=== PATIENT | male | born 1970 ===

== ENCOUNTER 2016-10-27 09:32 | Emergency (ER) | payer OTHER ==
[2016-10-27] MEDS ORDERED: oxyCODONE 5 MG TABLET PO STA ×2 (11:52→13:20)
[2016-10-27] MEDS ORDERED: ONDANSETRON ODT 4 MG TABLET TL STA (11:52)
--- NOTE | 2016-10-27 12:02 | ED Physician Documentation ---
History of Present Illness - Stated complaint Stated Complaint: HEADACHE - Chief complaint Chief Complaint: General - Additonal information Additional information: hx from pt healthy 46 [place] male int severe sharp L occiptal region SMART for 11 days no fever no neck stiffness no vision change no numbness or weakness nasuea no vomit no trauma or whiplash recalled saw PMD at [facility] an MRI was ordered and is scheduled for tomorrow pain now acutely more severe and constant now no contacts with same denies CO in the house Review of Systems Constitutional: denies: Fever, Chills Eyes: denies: Decreased vision Throat: denies: Sore throat Cardiac: denies: Chest pain / pressure GI: reports: Nausea. denies: Abdominal Pain, Vomiting Musculoskeletal: reports: Neck pain Neurologic: reports: Headache. denies: Generalized weakness, Focal weakness, Numbness, Head injury Endocrine: denies: Easy bruising / bleeding Immunocompromised: denies: Immunocompromised PD PAST MEDICAL HISTORY - Past Medical History Past Medical History: Yes Cardiovascular: Hypertension Respiratory: None Endocrine/Autoimmune: None GI: None : None Psych: None Musculoskeletal: None Derm: None - Past Surgical History Past Surgical History: No - Present Medications Home Medications: Ambulatory Orders Medication Instructions Recorded Confirmed Acetaminophen 500 mg PO Q4HR 10/27/16 10/27/16 Butalbital/Aspirin/Caffeine 1 each PO Q6H PRN #10 capsule 10/27/16 [Fiorinal 50-325-40 mg Capsule] Lisinopril 20 mg PO DAILY 10/27/16 10/27/16 Testosterone [Fortesta] 2 units TD DAILY 10/27/16 10/27/16 - Allergies Allergies/Adverse Reactions: Allergies Allergy/AdvReac Type Severity Reaction Status Date / Time No Known Drug Allergies Allergy Verified 10/27/16 09:48 - Social History Does the pt smoke?: No Smoking Status: Never smoker Does the pt drink ETOH?: Yes Does the pt have substance abuse?: No - Immunizations Immunizations are current?: Yes PD ED PE NORMAL - Vitals Vital signs reviewed: Yes - General General: Alert and oriented X 3 - HEENT HEENT: PERRL, EOMI - Neck Neck: Supple, no meningeal sign, No bony TTP, Other (no shingles rash) - Cardiac Cardiac: RRR - Respiratory Respiratory: No respiratory distress, Clear bilaterally - Abdomen Abdomen: Soft, Non tender - Derm Derm: Normal color - Neuro Neuro: Alert and oriented X 3, administrative resources associate 2-12 intact, No motor deficit, No sensory deficit, Normal speech - Psych Psych: Normal mood Results - Vitals Vitals: Vital Signs - 24 hr 10/27/16 10/27/16 10/27/16 09:45 13:15 16:54 Temperature 36.6 C 36.8 C 36.2 C L Heart Rate 67 60 63 Respiratory 16 18 18 Rate Blood Pressure 168/96 H 163/106 H 158/93 H O2 Saturation 99 97 95 10/27/16 18:49 Temperature 36.2 C L Heart Rate 65 Respiratory 20 Rate Blood Pressure 191/117 H O2 Saturation 97 Oxygen O2 Source Room air - Rads (name of study) MRI brain Radiology: See rad report (no acute) MRA brain Radiology: See rad report MRA neck Radiology: See rad report (no acute) PD MEDICAL DECISION MAKING - ED course ED course: subacute severe occipital SMART no feve ror neck stiffness makes meningitis extremely unlikely denies CO exposure considered vertebral dissection - MRA neck neg considered aneurysm SAH but MRA brain shows nl vasculature and no visible bleed which makes SAH extremely unlikely and do not feel LP is needed and MRI brain showed no tumor etc etiology still unclear but reassuring wup so will dc to [facility] tomorrow pt BP running high whole ED stay but he has a hx of HTN - apprently did not take his BP meds today and states to nurse those readings are normal for him- his DC BP was much higher - suggested pt stay to get meds for same but he just wants to go home and take his own meds and see his PMD Departure - Departure Disposition: 01 Home, Self Care Clinical Impression: Headache Condition: Good Instructions: ED Cephalgia Unspecified Follow-Up: [facility] Oroscokarina Gao [Provider Group] Prescriptions: Butalbital/Aspirin/Caffeine [Fiorinal 50-325-40 mg Capsule] 1 each PO Q6H PRN # 10 capsule PRN Reason: Headache Comments: Your history and exam do not suggest meningitis. The MRA of you neck did not show an aneurysm or tear of the blood vessels The MRA of your brain did not show an aneurysm or bleeding in the brain The MRI of your brain does not show any tumors And you are certain there is no carbon monoxide in your house The cause of the headache is still unclear, but given the reassuring work up I think it is safe for your to go home tonight and follow up with your doctors at [facility] tomorrow. For pain I suggest trying a medication called fioricet which I have written a prescription for - please pick it up on your way home No flying or operating machinery until you have followed up with medical at [facility] for a recheck and perhaps further evaluation and have been cleared Please get your blood pressure rechecked when you are feeling better as well - it was high today Forms: Activity restrictions Discharge Date/Time: 10/27/16 18:49
[2016-10-27] MEDS ORDERED: oxyCODONE 5 MG TABLET ONE ×2 (12:14→13:41)
[2016-10-27] MEDS ORDERED: ONDANSETRON ODT 4 MG TABLET ONE (12:14)
[2016-10-27] MEDS ORDERED: GADOBUTROL 10 MMOL/10 ML VIAL ONE (14:35)
[2016-10-27] MEDS ORDERED: GADOBUTROL 10 MMOL/10 ML VIAL IVP ONE (16:20)
--- NOTE | 2016-10-27 16:26 | MRI Preliminary Report ---
Exam: MRI Brain W/O IMPRESSION: 1. No MRI evidence for acute intracranial abnormality. 2. Minimal nonspecific white matter T2 hyperintense signal changes, probably chronic. 3. Minimal nonspecific paranasal sinus mucosal thickening. [facility] SITE ID: [id number]
--- NOTE | 2016-10-27 16:28 | MRI Report ---
EXAM: MRI BRAIN WITHOUT CONTRAST EXAM DATE: 10/27/2016 04:09 PM. CLINICAL HISTORY: Severe occipital headache. COMPARISON: None. TECHNIQUE: Multiplanar, multisequence T1-weighted and fluid-sensitive MR sequences of the brain were performed. Sequences optimized for routine evaluation. Other: None. IV Contrast: None. FINDINGS: Brain Volume: Normal for age. Parenchyma/Dura: No masses, infarcts, or hemorrhage. There are a few tiny scattered foci of nonspecif ic white matter T2 hyperintensity. The usual gamut of White matter conditions may be considered inclu ding minimal small vessel ischemic disease which could include migraine angiopathy. No discrete plaqu e-like periventricular T2 hyperintense lesions. No mass effect, midline shift or abnormal subdural fluid collection. No evidence for Chiari malformat ion. Ventricles/Cisterns: No hydrocephalus. Sinuses: The nasal septum is deviated to the left. Minimal multifocal paranasal sinus mucosal thicken ing is present without air-fluid level or opacification. Clear mastoids. Bones: No focal pathologic appearing marrow signal changes in the skull or clivus. Other: The major arterial skull base flow voids are present. IMPRESSION: 1. No MRI evidence for acute intracranial abnormality. 2. Minimal nonspecific white matter T2 hyperintense signal changes, probably chronic. 3. Minimal nonspecific paranasal sinus mucosal thickening. [facility] Referring Provider Line: [phone] SITE ID: [id number]
--- NOTE | 2016-10-27 16:59 | MRI Preliminary Report ---
Exam: MRI Angio Brain W/O (MRA) IMPRESSION: 1. No hemodynamically significant stenosis, dissection, occlusion, aneurysm, vascular malformation wi thin the intracranial arteries. 2. The left posterior communicating artery is not visualized, likely hypoplastic or aplastic. [facility] SITE ID: [id number]
--- NOTE | 2016-10-27 17:01 | MRI Report ---
EXAM MRA BRAIN EXAM DATE: 10/27/2016 04:30 PM. CLINICAL HISTORY: Int severe occipital pain, now constant sharp severe. COMPARISON: MRI brain obtained concurrently. TECHNIQUE: Multiplanar, multisequence MRA sequences of the brain were performed. Other: None. Post-pr ocessing: Multiplanar 3D MIP reconstructions. IV Contrast: None. FINDINGS: RIGHT Internal Carotid (ICA): No aneurysm, stenosis or anomaly. Middle Cerebral (MCA): No aneurysm, stenosis or anomaly. Anterior Cerebral (TERENCE): No aneurysm, stenosis or anomaly. Posterior Cerebral (FRUIT OR NUT FARM WORKER): No aneurysm, stenosis or anomaly. Posterior Communicating (P-COM): No aneurysm, stenosis or anomaly. Vertebral: No aneurysm, stenosis or anomaly in the visualized upper vertebral artery. LEFT Internal Carotid (ICA): No aneurysm, stenosis or anomaly. Middle Cerebral (MCA): No aneurysm, stenosis or anomaly. Anterior Cerebral (TERENCE): No aneurysm, stenosis or anomaly. Posterior Cerebral (FRUIT OR NUT FARM WORKER): No aneurysm, stenosis or anomaly. Posterior Communicating (P-COM): The left posterior communicating artery is not visualized, likely hy poplastic or aplastic. Vertebral: No aneurysm, stenosis or anomaly in the visualized upper vertebral artery. MIDLINE Anterior Communicating (A-COM): No aneurysm, stenosis or anomaly. Other: None. IMPRESSION: 1. No hemodynamically significant stenosis, dissection, occlusion, aneurysm, vascular malformation wi thin the intracranial arteries. 2. The left posterior communicating artery is not visualized, likely hypoplastic or aplastic. [facility] Referring Provider Line: [phone] SITE ID: [id number]
--- NOTE | 2016-10-27 17:04 | MRI Preliminary Report ---
Exam: MRI Angio Neck W/WO (MRA) IMPRESSION: 1. Normal neck MRA. No hemodynamically significant stenoses, dissections, occlusions, aneurysms, or v ascular malformations. 2. Concurrently obtained MRA head is dictated separately. [facility] SITE ID: [id number]
--- NOTE | 2016-10-27 17:07 | MRI Report ---
EXAM: MR ANGIOGRAM NECK EXAM DATE: 10/27/2016 04:50 PM. CLINICAL HISTORY: Sharp severe upper post pain. COMPARISON: MRI brain and MRA head obtained concurrently TECHNIQUE: Multiplanar, multisequence MRA sequences of the neck were performed. Other: None. Post-pro cessing: Multiplanar 3D MIP reconstructions. IV Contrast: Without and with. 10 mL Gadavist Evaluatio n of arterial stenosis is based on a NASCET method of measurement. FINDINGS: RIGHT Common Carotid: Patent. No dissection or significant stenosis. Internal Carotid: Patent. No dissection or significant stenosis. External Carotid: Patent. No dissection or significant stenosis. Vertebral: Patent. No dissection or significant stenosis. Mildly tortuous but patent V2 segment. LEFT Common Carotid: Patent. No dissection or significant stenosis. Internal Carotid: Patent. No dissection or significant stenosis. External Carotid: Patent. No dissection or significant stenosis. Vertebral: Patent. No dissection or significant stenosis. Mildly tortuous but patent V2 segment. Intracranial Circulation: Concurrently obtained MRA head is dictated separately. Other: The soft tissues, bones, and lung apices are within normal limits. IMPRESSION: 1. Normal neck MRA. No hemodynamically significant stenoses, dissections, occlusions, aneurysms, or v ascular malformations. 2. Concurrently obtained MRA head is dictated separately. [facility] Referring Provider Line: [phone] SITE ID: [id number]
[2016-10-27] MEDS ORDERED: KETOROLAC 60 MG/2 ML VIAL IM STA (17:16)
[2016-10-27] MEDS ORDERED: KETOROLAC 60 MG/2 ML VIAL ONE (17:50)
[2016-10-27] MEDS ORDERED: LIDOCAINE PATCH 5% TOP STA (18:20)
[2016-10-27] MEDS ORDERED: LIDOCAINE PATCH 5% TOP ONE (18:33)
[2016-10-27 19:06] VITALS: BP 191/117
== END 2016-10-27 18:49 | disposition home or self-care (01) ==
LOC: ED 09:32
DX: R51 Headache (principal)
CPT/HCPCS: 70544; 70549; 70551; 96372; 99283; A9270; A9585; Q0162